=== PATIENT | female | born 1960 | race Caucasian/White ===

== ENCOUNTER 2016-11-12 14:47 | Emergency (ER) | payer MEDICAID ==
[2016-11-12 14:57] VITALS: BP 102/77; PULSE 77; RESP 16; TEMP 98.1; O2SAT 94
[2016-11-12] MEDS ORDERED: IBUPROFEN 600 MG TAB PO ONE (14:57)
--- NOTE | 2016-11-12 15:17 | EDPHY ---
H & P Time Seen by Provider: 11/12/16 14:56 HPI/ROS: This patient reports falling down a dirt hill side she was walking to the [place] while camping 2 days ago. She explains that was mild mechanism initially had mild discomfort initially in her low lumbar area with the fall bilateral paraspinous muscular region the 1st day of the injury. However over the past 24 hours she has developed increasing pain that is described as achy and occasionally sharp in nature. She feels she is having some muscle spasms the times in her low back. The pain radiates to the upper back bilaterally. It does not radiate into her buttock or legs. She denies any midline pain. She has had similar back pain with injuries in the past. ROS: No fevers. No other constitutional symptoms and line HEENT: She did not strike her head in the fall Musculoskeletal: No midline pain. No extremity injuries. Neuro: No focal numbness tingling or weakness. No bowel or bladder incontinence. Pulmonary: No shortness of breath. Cardiovascular: No heart palpitations or chest pain GI: No abdominal pain : No hematuria. No dysuria 7 point ROS is otherwise negative Past Medical/Surgical History: Ibj-wemqjhh-hnzhlpflz diabetes Peripheral neuropathy Smoking Status: Former smoker Physical Exam: General Appearance: Alert, no distress. Eyes: Pupils equal and round no pallor or injection. ENT,-atraumatic Respiratory: There are no retractions, no chest wall tenderness. No respiratory distress. Cardiovascular: Regular rate and rhythm. Gastrointestinal: Abdomen is soft and nontender, no masses, bowel sounds normal. Back: No midline tenderness. She has paraspinous lumbar tenderness bilaterally. Straight leg raise is negative bilaterally. She retains good range of motion but has increased pain with forward flexion more than back extension. No particular difficulty with lateral flexion. Neurological: GCS 15. She maintains normal light touch sensory exam upper and lower extremities. She maintains 5/5 strength in great toe dorsiflexion plantar flexion bilaterally. She has weak but symmetric patellar and Achilles DTRs bilaterally. Skin: Warm and dry, no rashes. Musculoskeletal: Neck is supple nontender. Extremities are symmetrical, full range of motion. Psychiatric: Mood and affect are normal DIFFERENTIAL DIAGNOSIS: After history and physical exam differential diagnosis was considered for back contusion, low back strain, doubt compression fracture or disc herniation based on history and exam Constitutional: Initial Vital Signs Temperature (C) 36.7 C 11/12/16 14:49 Heart Rate 77 11/12/16 14:49 Respiratory Rate 16 11/12/16 14:49 Blood Pressure 102/77 11/12/16 14:49 O2 Sat (%) 94 11/12/16 14:49 O2 Delivery Mode Room Air Allergies/Adverse Reactions: No Known Allergies Allergy (Verified 11/12/16 14:56) Home Medications: Medication Instructions Recorded Neurontin 12/05/12 Levemir Flextouch 01/02/15 Novolog Flexpen 10/06/15 Ibuprofen [Motrin (*)] 600 mg PO Q6 PRN #30 tab 11/12/16 Methocarbamol [Robaxin 750 mg (*)] 750 - 1,500 mg PO QID PRN #30 tab 11/12/16 Pepcid 11/12/16 traMADol [Ultram 50 mg (*)] 50 - 100 mg PO Q4 PRN #18 tab 11/12/16 MDM/Departure - [facility] ED Course/Re-evaluation: Patient's clinical findings are most consistent with low back strain. She has no midline tenderness no radiculopathy or other red flag findings that would suggest bony injury or nerve impingement. No evidence of cauda equina. I counseled regarding low back strain suggested stretches that may be of benefit to her.\\ She requested Percocet for analgesia that. Explain that felt tramadol is a better option in this case. - Depart Disposition: Home, Routine, Self-Care Clinical Impression: Low back strain Qualifiers: Encounter type: initial encounter Qualified Code(s): S39.012A - Strain of muscle, fascia and tendon of lower back, initial encounter Condition: Good Instructions: Low Back Strain (ED) Additional Instructions: DX: Low back strain Plan: Ibuprofen 400-600 mg per 6 hours regularly for the next week then as needed. Methocarbamol muscle relaxants as needed. Tramadol & Tylenol in addition as needed for pain. No driving alcohol or work on Tramadol Starts daily stretches prior to taking muscle relaxants and Vicodin in the morning. 3-5 minutes each of: "Butterfly stretch," "Sphinx stretch", "pigeon stretch", and hamstring stretch. Avoid lifting more than 5-10 pounds until symptoms improve. Call your primary care physician for a followup appointment in 3-7 days. Go to the emergency department for worsening of your symptoms despite the treatment plan. Prescriptions: Ibuprofen [Motrin (*)] 600 mg PO Q6 PRN #30 tab PRN Reason: Pain Methocarbamol [Robaxin 750 mg (*)] 750 - 1,500 mg PO QID PRN #30 tab PRN Reason: Muscle Spasms traMADol [Ultram 50 mg (*)] 50 - 100 mg PO Q4 PRN #18 tab PRN Reason: breakthrough pain Referrals: [facility],. [Primary Care Provider] - As per Instructions
== END 2016-11-12 15:24 | disposition home or self-care (01) ==
LOC: CED 14:47
DX: S39.012A Strain of muscle, fascia and tendon of lower back, initial encounter (principal); E11.9 Type 2 diabetes mellitus without complications; Z79.4 Long term (current) use of insulin; Z87.891 Personal history of nicotine dependence; W17.81XA Fall down embankment (hill), initial encounter; Y92.828 Other wilderness area as the place of occurrence of the external cause; Y99.8 Other external cause status; Y93.01 Activity, walking, marching and hiking

== ENCOUNTER 2017-01-30 21:56 | Emergency (ER) | payer MEDICAID ==
[2017-01-30 22:16] VITALS: RESP 16
[2017-01-30] MEDS ORDERED: ONDANSETRON 4 MG/2 ML VIAL IVP ONE ×2 (22:41→22:46)
[2017-01-30] MEDS ORDERED: NS 1,000 ML IV ONE ×2 (22:42→22:46)
--- NOTE | 2017-01-30 22:50 | EDPHY ---
H & P Smoking Status: Former smoker Time Seen by Provider: 01/30/17 22:12 HPI/ROS: CHIEF COMPLAINT: Vomiting, epigastric abdominal pain HISTORY OF PRESENT ILLNESS: 56-year-old female presents to the emergency department by private vehicle complaining of multiple episodes of vomiting today. The patient began feeling sick earlier today and has been vomiting all day. She has some epigastric abdominal pain. She denies back pain. Denies urinary symptoms. She was recently treated for UTI over 1 week ago and completed the antibiotics as prescribed. No fevers or chills. No reported trauma. Chest pain or difficulty breathing. No headache. Normal bowel movement yesterday. REVIEW OF SYSTEMS: Constitutional: No fever, no chills. Eyes: No double or blurry vision. ENT: No sore throat. Respiratory: No cough, no shortness of breath. Cardiac: No chest pain. Gastrointestinal: Vomiting as above. Epigastric abdominal pain as above. No diarrhea. Genitourinary: No dysuria. Musculoskeletal: No neck or back pain. Skin: No rashes. Neurological: No headache. (Elizabet Mcneal) Past Medical/Surgical History: Type 2 diabetic on insulin (Elizabet Mcneal) Social History: Single and lives in [place] (Elizabet Mcneal) Physical Exam: General Appearance: Alert, no distress. Afebrile. Nontoxic appearing. Eyes: Pupils equal and round. Extraocular motions are all intact. ENT: Mouth: Mucous membranes appear dry. Respiratory: No wheezing, rhonchi, or rales, lungs are clear to auscultation. Cardiovascular: Regular rate and rhythm. Gastrointestinal: Abdomen is soft. Tenderness with palpation in the epigastric area. There is no rebound, guarding or masses noted. No CVA tenderness bilaterally. Neurological: Alert and oriented x 3, cranial nerves II through XII grossly intact Skin: Warm and dry, no rashes. Musculoskeletal: Nontender to palpate along the cervical, thoracic or lumbar spine. Neck is supple. Extremities: Full range of motion and no peripheral edema. Psychiatric: Patient is oriented X 3, there is no agitation. (Elizabet Mcneal) Constitutional: Initial Vital Signs Temperature (C) 36.6 C 01/30/17 22:12 Heart Rate 67 01/30/17 22:12 Respiratory Rate 16 01/30/17 22:12 Blood Pressure 134/80 H 01/30/17 22:12 O2 Sat (%) 96 01/30/17 22:12 O2 Delivery Mode Room Air Allergies/Adverse Reactions: No Known Allergies Allergy (Verified 11/12/16 14:56) Home Medications: Medication Instructions Recorded Neurontin 12/05/12 Levemir Flextouch 01/02/15 Novolog Flexpen 10/06/15 Ibuprofen [Motrin (*)] 600 mg PO Q6 PRN #30 tab 11/12/16 Methocarbamol [Robaxin 750 mg (*)] 750 - 1,500 mg PO QID PRN #30 tab 11/12/16 Pepcid 11/12/16 traMADol [Ultram 50 mg (*)] 50 - 100 mg PO Q4 PRN #18 tab 11/12/16 Medical Decision Making - Diagnostics Imaging: Discussed imaging studies w/ scallop binder Radiologist - Diagnostics Imaging Results: Imaging Impressions Abdomen CT 01/31/17 01:09 Impression:1. Minimal diverticulosis without evidence of diverticulitis. Normal appendix. 2. 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 This could potentially indicate pelvic venous congestion syndrome. If that is a possibility in this patient, then consultation with Dr. Lidia Gil of our interventional radiology service might be considered. 3. Thickened urinary bladder wall associated with pelvic floor prolapse. This may be related to recent or recurrent UTI or urethral obstruction from pelvic floor prolapse. If it is important to better define the prolapse, then MRI of the pelvis during Valsalva maneuver with rectal and vaginal contrast might be helpful. Urologic consultation may be useful. Results called and discussed with ELIZABET MCNEAL, DIGITAL PRODUCTION OPERATOR at 01/31/2017 2:01 General information for patients regarding this examination can be found at [email or web address]. If you have questions or comments about this report, please contact me at (hospital) or [phone] (cell). ED Course/Re-evaluation: Laboratory studies were unremarkable. The patient continued to feel nauseous and was vomiting after trying to drink some water and given IV Zofran and IV normal saline. CT imaging of the abdomen and pelvis has been ordered and is pending. CT imaging of the abdomen and pelvis reveal normal appendix. She has some diverticula without evidence of diverticulitis. There was some question of possible pelvic venous congestion syndrome as well as possible vaginal prolapse. She has a thickened urinary wall which could be related to a recent urinary tract infection. Patient was given additional Zofran. She was p. o. challenged. She will be discharged home. (Elizabet Mcneal) Differential Diagnosis: Including but not limited to viral gastroenteritis, bowel obstruction, acute appendicitis, dehydration, pancreatitis, hepatitis, GERD, peptic ulcer disease ( Elizabet Mcneal) Other Provider: PHYSICIAN DOCUMENTATION: The patient was evaluated and managed by the Physician Punch Press Operator Helper. My co- signature indicates that I have reviewed this chart and I agree with the findings and plan of care as documented. I am the secondary supervising physician. (Amaya Tan) - Data Points Laboratory Results: Laboratory Results 01/30/17 22:22 01/30/17 22:22 01/31/17 01/30/17 01/30/17 02:22 22:22 22:22 WBC 11.16 10^3/uL H 10^3/uL (3.80-9.50) RBC 5.34 10^6/uL H 10^6/uL (4.18-5.33) Hgb 15.5 g/dL g/dL (12.6-16.3) Hct 44.0 % % (38.0-47.0) MCV 82.4 fL fL (81.5-99.8) MCH 29.0 pg pg (27.9-34.1) MCHC 35.2 g/dL g/dL (32.4-36.7) RDW 12.6 % % (11.5-15.2) Plt Count 249 10^3/uL 10^3/uL (150-400) MPV 10.1 fL fL (8.7-11.7) Neut % (Auto) 71.4 % % (39.3-74.2) Lymph % (Auto) 22.0 % % (15.0-45.0) [place] % (Auto) 4.6 % % (4.5-13.0) Eos % (Auto) 1.2 % % (0.6-7.6) Baso % (Auto) 0.4 % % (0.3-1.7) Nucleat RBC Rel Count 0.0 % % (0.0-0.2) Absolute Neuts (auto) 7.96 10^3/uL H 10^3/uL (1.70-6.50) Absolute Lymphs (auto) 2.46 10^3/uL 10^3/uL (1.00-3.00) Absolute Monos (auto) 0.51 10^3/uL 10^3/uL (0.30-0.80) Absolute Eos (auto) 0.13 10^3/uL 10^3/uL (0.03-0.40) Absolute Basos (auto) 0.05 10^3/uL 10^3/uL (0.02-0.10) Absolute Nucleated RBC 0.00 10^3/uL 10^3/uL (0-0.01) Immature Gran % 0.4 % % (0.0-1.1) Immature Gran # 0.05 10^3/uL 10^3/uL (0.00-0.10) Sodium 139 mEq/L mEq/L (134-144) Potassium 3.8 mEq/L mEq/L (3.5-5.2) Chloride 99 mEq/L mEq/L (97-110) Carbon Dioxide 27 mEq/l mEq/l (22-31) Anion Gap 13 mEq/L mEq/L (8-16) BUN 20 mg/dL mg/dL (7-23) Creatinine 0.6 mg/dL mg/dL (0.6-1.0) Estimated GFR > 60 Glucose 205 mg/dL H mg/dL (70-100) Calcium 9.6 mg/dL mg/dL (8.5-10.4) Total Bilirubin 0.9 mg/dL mg/dL (0.1-1.4) Conjugated Bilirubin 0.3 mg/dL mg/dL (0.0-0.5) Unconjugated Bilirubin 0.6 mg/dL mg/dL (0.0-1.1) AST 30 IU/L IU/L (14-46) ALT 48 IU/L IU/L (9-52) Alkaline Phosphatase 114 IU/L IU/L (38-126) Total Protein 7.7 g/dL g/dL (6.3-8.2) Albumin 4.5 g/dL g/dL (3.5-5.0) Lipase 52 IU/L IU/L (23-300) Urine Color YELLOW Urine Appearance CLEAR Urine pH 5.0 (5.0-7.5) Ur Specific [place] > 1.035 H (1.002-1.030) Urine Protein NEGATIVE (NEGATIVE) Urine Ketones TRACE H (NEGATIVE) Urine Blood NEGATIVE (NEGATIVE) Urine Nitrate NEGATIVE (NEGATIVE) Urine Bilirubin NEGATIVE (NEGATIVE) Urine Urobilinogen NEGATIVE EU EU (0.2-1.0) Ur Leukocyte Esterase NEGATIVE (NEGATIVE) Urine RBC 1-3 /hpf /hpf (0-3) Urine WBC 1-3 /hpf /hpf (0-3) Ur Epithelial Cells TRACE /lpf /lpf (NONE-1+) Urine Bacteria TRACE /hpf H /hpf (NONE SEEN) Urine Mucus TRACE /lpf /lpf (NONE-1+) Urine Glucose 2+ H (NEGATIVE) Medications Given: Discontinued Medications Sodium Chloride (Ns) 1,000 mls @ 0 mls/hr IV ONCE ONE PRN Reason: Wide Open Stop: 01/30/17 22:43 Last Admin: 01/30/17 22:49 Dose: Not Given Sodium Chloride (Ns) 1,000 mls @ 0 mls/hr IV EDNOW ONE; Wide Open PRN Reason: Protocol Stop: 01/30/17 22:47 Last Admin: 01/30/17 22:50 Dose: 1,000 mls Ondansetron HCl (Zofran) 4 mg IVP EDNOW ONE Stop: 01/30/17 22:42 Last Admin: 01/30/17 22:49 Dose: Not Given Ondansetron HCl (Zofran) 4 mg IVP EDNOW ONE Stop: 01/30/17 22:47 Last Admin: 01/30/17 22:50 Dose: 4 mg Ondansetron HCl (Zofran) 4 mg IVP EDNOW ONE Stop: 01/31/17 03:08 Last Admin: 01/31/17 03:09 Dose: 4 mg Departure - Departure Disposition: Home, Routine, Self-Care Clinical Impression: Vomiting Qualifiers: Vomiting type: unspecified Vomiting Intractability: non-intractable Nausea presence: with nausea Qualified Code(s): R11.2 - Nausea with vomiting, unspecified Abdominal pain Qualifiers: Abdominal location: epigastric Qualified Code(s): R10.13 - Epigastric pain Condition: Good Instructions: Acute Nausea and Vomiting (ED), Abdominal Pain (ED) Additional Instructions: Abdominal Pain: Return to the Emergency Department immediately for increasing pain, fever, vomiting, or if not completely better in 8-12 hours. Referrals: Lola Turner DO [Primary Care Provider] - As per Instructions
[2017-01-30 22:56] LABS: % IMMATURE GRANULYOCYTES 0.4 % (0.0-1.1); ABSOLUTE IMMATURE GRANULOCYTES 0.05 10^3/uL (0.00-0.10); ADD DIFF? NO; ADD MORPH? NO; ADD SCAN? NO; ATYPICAL LYMPHOCYTE FLAG 10 (0-99); FRAGMENT RBC FLAG 0 (0-99); HEMOGLOBIN 15.5 g/dL (12.6-16.3); LEFT SHIFT FLG 0 (0-99); LIPEMIA HEMOLYSIS FLAG 90 (0-99); MEAN CELL HEMOGLOBIN CONCENTR. 35.2 g/dL (32.4-36.7); MEAN CELL VOLUME 82.4 fL (81.5-99.8); MEAN PLATELET VOLUME 10.1 fL (8.7-11.7); PLATELET CLUMPS FLAG 20 (0-99); PLATELET COUNT 249 10^3/uL (150-400); RED BLOOD CELL COUNT 5.34 10^6/uL (4.18-5.33); RED CELL DISTRIBUTION WIDTH 12.6 % (11.5-15.2)
[2017-01-30 23:01] LABS: ALANINE AMINOTRANSFERASE 48 IU/L (9-52); ALBUMIN 4.5 g/dL (3.5-5.0); ALKALINE PHOSPHATASE 114 IU/L (38-126); ANION GAP 13 mEq/L (8-16); ASPARTATE AMINOTRANSFERASE 30 IU/L (14-46); BILIRUBIN,TOTAL 0.9 mg/dL (0.1-1.4); BILIRUBIN-CONJUGATED 0.3 mg/dL (0.0-0.5); BILIRUBIN-UNCONJUGATED 0.6 mg/dL (0.0-1.1); CALCIUM 9.6 mg/dL (8.5-10.4); CARBON DIOXIDE 27 mEq/l (22-31); CHLORIDE 99 mEq/L (97-110); CREATININE 0.6 mg/dL (0.6-1.0); GLOMERULAR FILTRATION RATE > 60; GLUCOSE 205 mg/dL (70-100); POTASSIUM 3.8 mEq/L (3.5-5.2); SODIUM 139 mEq/L (134-144); TOTAL PROTEIN 7.7 g/dL (6.3-8.2)
[2017-01-31] MEDS ORDERED: IOPAMIDOL (ISOVUE-300) 100 ML BTL ONE (01:13)
[2017-01-31 02:30] LABS: COLOR YELLOW; LEUKOCYTE ESTERASE,URINE NEGATIVE (NEGATIVE); NITRITE,URINE NEGATIVE (NEGATIVE)
[2017-01-31 02:34] LABS: BACTERIA TRACE /hpf (NONE SEEN); MUCUS TRACE /lpf (NONE-1+)
[2017-01-31] MEDS ORDERED: ONDANSETRON 4 MG/2 ML VIAL IVP ONE (03:07)
[2017-01-31 03:29] VITALS: BP 116/74; PULSE 77; TEMP 98.6; O2SAT 94
== END 2017-01-31 03:27 | disposition home or self-care (01) ==
DX: R10.13 Epigastric pain (principal); R11.2 Nausea with vomiting, unspecified; E11.9 Type 2 diabetes mellitus without complications; E86.9 Volume depletion, unspecified; Z79.4 Long term (current) use of insulin
CPT/HCPCS: 96374; J2405; Q9967

== ENCOUNTER 2017-05-07 10:34 | Emergency (ER) | payer MEDICAID ==
[2017-05-07 10:40] VITALS: TEMP 98.6; O2SAT 94
--- NOTE | 2017-05-07 11:51 | EDPHY ---
H & P Time Seen by Provider: 05/07/17 11:20 HPI/ROS: CHIEF COMPLAINT: Cough times 24 hr HISTORY OF PRESENT ILLNESS: 56-year-old female, no influenza vaccination, nonsmoker, complaining of flu-like symptoms, productive cough for the past 24 hr. No chest pain. No dyspnea. No abdominal pain. No urinary abnormality PRIMARY CARE PROVIDER: REVIEW OF SYSTEMS: A ten point review of systems was performed and is negative with the exception of the items mentioned in the HPI PAST MEDICAL & SURGICAL HISTORY: No influenza vaccination. No chronic respiratory condition SOCIAL HISTORY:Nonsmoker FAMILY HISTORY: No pertinent family history PHYSICAL EXAM (Prior to examination, patient consented to physical exam, hands were washed and my usual and customary physical exam procedures followed) 1) GENERAL: Well-developed, well-nourished, alert and oriented. Appears to be in no acute distress. Sleeping easily woken 2) HEAD: Normocephalic, atraumatic 3) HEENT: Pupils equal, round, reactive to light bilaterally. Sclera anicteric. Nasopharynx, oropharynx, clear, no lesions. Ears bilaterally with normal tympanic membranes. 4) NECK: Full range of motion, no meningeal signs. 5) LUNGS: Clear auscultation bilaterally, no wheezes, no rhonchi, no retractions. 6) HEART: Regular rate and rhythm, no murmur, no heave, no gallop. 7) ABDOMEN: No guarding, no rebound, no focal tenderness, negative McBurney's, negative Gudino's, negative Rovsing's, negative peritoneal sign, 8) MUSCULOSKELETAL: Moving all extremities, no focal areas of tenderness, no obvious trauma. No peripheral edema or discoloration. 9) BACK: No CVA tenderness, no midline vertebral tenderness, no fluctuance, no step-off, no obvious trauma, no visual or palpable abnormality. 10) SKIN: No rash, no petechiae. 11) Psychiatric: Patient is oriented X 3, there is no agitation. DIFFERENTIAL DIAGNOSIS: In no particular include but limited to pneumonia, bronchitis, influenza Smoking Status: Former smoker Constitutional: Initial Vital Signs Temperature (C) 37 C 05/07/17 10:39 Heart Rate 88 05/07/17 10:39 Respiratory Rate 20 05/07/17 10:39 Blood Pressure 112/86 H 05/07/17 10:39 O2 Sat (%) 94 05/07/17 10:39 O2 Delivery Mode Room Air Allergies/Adverse Reactions: No Known Allergies Allergy (Verified 05/07/17 10:38) Home Medications: Medication Instructions Recorded Neurontin 12/05/12 Levemir Flextouch 01/02/15 Novolog Flexpen 10/06/15 Ibuprofen [Motrin (*)] 600 mg PO Q6 PRN #30 tab 11/12/16 Methocarbamol [Robaxin 750 mg (*)] 750 - 1,500 mg PO QID PRN #30 tab 11/12/16 Pepcid 11/12/16 traMADol [Ultram 50 mg (*)] 50 - 100 mg PO Q4 PRN #18 tab 11/12/16 Albuterol [Proventil Inhaler HFA 1 - 2 puffs IH Q4PRN PRN #1 mdi 05/07/17 (*)] Benzonatate [Tessalon Pearles (RX)] 200 mg PO TID PRN #15 cap 05/07/17 MDM/Departure - [facility] ED Course/Re-evaluation: Patient appears well sitting comfortably, normal pulse oxygenation, not tachypneic. I think the patient symptoms are more than likely secondary to viral etiology. For these reasons, I do not feel antibiotics are currently indicated. We discussed possible influenza, offered testing however she declines this. In addition, I do not identify indication for chest x-ray as the patient's lungs are clear bilaterally, has a normal pulse ox, speaking full sentences, no signs of respiratory distress. The patient understands that this diagnosis is provisional and can never be 100% accurate. Usual and customary warnings were given concerning the clinical impression and all the patient's questions were answered. The patient was instructed to return to the emergency department should her symptoms worsen or return, or develop any new symptoms, otherwise to followup as directed in discharge instructions. Care of patient under supervision of secondary supervising physician Dr Berta Parikh - Depart Disposition: Home, Routine, Self-Care Clinical Impression: Upper respiratory infection Qualifiers: URI type: unspecified viral URI Qualified Code(s): J06.9 - Acute upper respiratory infection, unspecified Condition: Good Instructions: Upper Respiratory Infection (ED) Additional Instructions: You were examined in the emergency department today for upper respiratory infection (URI) like symptoms. While more URIs are caused by viral illnesses, we cannot always exclude the possibility of a bacterial infection that may require treatment with antibiotics. Return to the emergency department immediately for change in breathing habits, change in voice, change in swallowing habits, change in mental status, or any other symptoms that concern you. Prescriptions: Albuterol [Proventil Inhaler HFA (*)] 1 - 2 puffs IH Q4PRN PRN #1 mdi PRN Reason: Cough, Moderate Benzonatate [Tessalon Pearles (RX)] 200 mg PO TID PRN #15 cap PRN Reason: Cough, Moderate Referrals: Lola Turner DO [Primary Care Provider] - As per Instructions
[2017-05-07 12:17] VITALS: BP 102/63; PULSE 86; RESP 16
== END 2017-05-07 12:19 | disposition home or self-care (01) ==
DX: J06.9 Acute upper respiratory infection, unspecified (principal); Z87.891 Personal history of nicotine dependence

== ENCOUNTER 2017-07-10 07:41 | Emergency (ER) | payer MEDICAID ==
[2017-07-10 07:48] VITALS: BP 144/66
--- NOTE | 2017-07-10 08:22 | EDPHY ---
HPI/HX/ROS/PE/MDM Narrative: CHIEF COMPLAINT: "bladder infection" HPI: The patient is a 57 y/o female with a history of UTIs complaining of UTI symptoms for the last 24 hours including dysuria and polyuria. Her symptoms feel the same as prior UTIs and her most recent UTI was 2 months ago. She denies back pain, fever, vomiting, diarrhea, or other symptoms. REVIEW OF SYSTEMS: Aside from elements discussed in the HPI, a comprehensive 10-point review of systems was reviewed and is negative. PMH: UTIs, peripheral neuropathy, diabetes, GERD, hyperlipidemia SOCIAL HISTORY: Nonsmoker. Lives in [place]. PHYSICAL EXAM: General:Patient is alert, in no acute distress. Abdomen:The abdomen is nontender to palpation. There are no peritoneal signs. Back: Normal to inspection. No tenderness to palpation. Skin: Normal color. No rash. Warm and dry. Extremities: Normal appearance. Full range of motion. Neuro: Oriented x3. Normal motor function. Normal sensory function. ED Course: This is a 57 y/o female who presents with a 24-hour history of UTI symptoms that feel the same as prior infections. No signs of systemic illness or pyelonephritis at this time. She is hemodynamically stable. UA indicates UTI and plan to treat with Macrobid as patient has refused Keflex after getting a headache during prior Keflex use. She will be discharged with standard care and follow up instructions. She is comfortable with this plan. - Data Points Laboratory Results: 07/10/17 08:00 Urine Color FER Urine Appearance MODERATELY TURBID Urine pH 5.0 (5.0-7.5) Ur Specific [place] 1.026 (1.002-1.030) Urine Protein 1+ H (NEGATIVE) Urine Ketones NEGATIVE (NEGATIVE) Urine Blood 2+ H (NEGATIVE) Urine Nitrate POSITIVE H (NEGATIVE) Urine Bilirubin NEGATIVE (NEGATIVE) Urine Urobilinogen NEGATIVE EU EU (0.2-1.0) Ur Leukocyte Esterase 3+ H (NEGATIVE) Urine RBC 50-182 /hpf H /hpf (0-3) Urine WBC 50-182 /hpf H /hpf (0-3) Ur Epithelial Cells TRACE /lpf /lpf (NONE-1+) Urine Bacteria 2+ /hpf H /hpf (NONE SEEN) Urine Mucus TRACE /lpf /lpf (NONE-1+) Urine Glucose 3+ H (NEGATIVE) General Time Seen by Provider: 07/10/17 08:14 Initial Vital Signs: Initial Vital Signs Temperature (C) 36.4 C 07/10/17 07:45 Heart Rate 69 07/10/17 07:45 Respiratory Rate 18 07/10/17 07:45 Blood Pressure 144/66 H 07/10/17 07:45 O2 Sat (%) 97 07/10/17 07:45 O2 Delivery Mode Room Air Allergies/Adverse Reactions: No Known Allergies Allergy (Verified 05/07/17 10:38) Home Medications: Medication Instructions Recorded Neurontin 12/05/12 Levemir Flextouch 01/02/15 Novolog Flexpen 10/06/15 Ibuprofen [Motrin (*)] 600 mg PO Q6 PRN #30 tab 11/12/16 Methocarbamol [Robaxin 750 mg (*)] 750 - 1,500 mg PO QID PRN #30 tab 11/12/16 Pepcid 11/12/16 Nitrofurantoin Monohyd/M-Cryst 100 mg PO BID #14 capsule 07/10/17 [Macrobid 100 mg Capsule] Departure - Departure Disposition: Home, Routine, Self-Care Clinical Impression: Urinary tract infection Condition: Good Instructions: Urinary Tract Infection in Women (ED) Additional Instructions: 1. Take Macrobid as prescribed. Be sure to complete the entire prescription. 2. Use Tylenol and ibuprofen as directed on the packaging as needed for pain or fever over the next few days. 3. Follow up with your primary care provider for unimproved symptoms over the next 3-4 days. Referrals: Lola Turner DO [Primary Care Provider] - As per Instructions Prescriptions: Nitrofurantoin Monohyd/M-Cryst [Macrobid 100 mg Capsule] 100 mg PO BID #14 capsule Report Scribed for: Shawn Blancas Report Scribed by: Yoselin Varela Date of Report: 07/10/17 Time of Report: 08:22 Physician Review and Approval Statement: Portions of this note were transcribed by an ED scribe. I personally performed the history, physical exam, and medical decision making; and confirm the accuracy of the information in the transcribed note.
== END 2017-07-10 08:27 | disposition home or self-care (01) ==
DX: N39.0 Urinary tract infection, site not specified (principal); E11.9 Type 2 diabetes mellitus without complications; B96.89 Other specified bacterial agents as the cause of diseases classified elsewhere; Z79.4 Long term (current) use of insulin

== ENCOUNTER 2018-06-06 11:20 | Emergency (ER) | payer MEDICAID | END 2018-06-06 12:44 | disposition home or self-care (01) ==